=== PATIENT | male | born 1970 | race Caucasian/White ===

== ENCOUNTER 2023-09-19 08:54 | Inpatient (IN) | payer OTHER ==
[~2023-09-19] VITALS: Ht 182.9 cm; Wt 126.6 kg
[2023-09-19] MEDS: (RENVELA) SEVELAMER **CARBONate** 800 MG TAB PO SCH (12:30)
[2023-09-19 12:50] VITALS: BP 147/88; TEMP 97.6; O2SAT 94
[2023-09-19] MEDS ORDERED: IPRATROPIUM 0.02% SOLN 0.5MG 2.5ML NEB INH PRN (13:35)
[2023-09-19] MEDS ORDERED: ASPI81CH33 PO (15:10)
[2023-09-19] MEDS ORDERED: AMIO200T49 PO (15:10)
[2023-09-19] MEDS ORDERED: ATOR1TAB19 PO ×2 (15:10)
[2023-09-19] MEDS ORDERED: APAP325T4 PO (15:10)
[2023-09-19] MEDS ORDERED: SERT-141 PO (15:29)
[2023-09-19] MEDS ORDERED: FERR325T3 PO (15:29)
[2023-09-19] MEDS ORDERED: METO25TA4 PO (15:29)
[2023-09-19] MEDS ORDERED: BUME2TAB3 PO (15:29)
[2023-09-19] MEDS ORDERED: POLY17PO18 PO (15:29)
[2023-09-19] MEDS ORDERED: IPRA0.00 INH (15:29)
[2023-09-19] MEDS ORDERED: FOLI1TAB11 PO (15:29)
[2023-09-19] MEDS ORDERED: METH-1164 PO (15:29)
[2023-09-19] MEDS ORDERED: LEVO200T4 PO (15:29)
[2023-09-19] MEDS ORDERED: MELA1TAB9 PO (15:29)
[2023-09-19] MEDS ORDERED: SEVE800T3 PO (15:29)
[2023-09-19] MEDS ORDERED: PANT40TA29 PO (15:29)
[2023-09-19] MEDS ORDERED: GABA-1171 PO (15:29)
[2023-09-19] MEDS ORDERED: ASCO500T PO (15:35)
[2023-09-19] MEDS ORDERED: VITA1CAP25 PO (15:35)
[2023-09-19] MEDS ORDERED: HOME MED LIST COMPLETE! XX SCH (15:40)
[2023-09-19] MEDS: GABAPENTIN 100 MG CAP PO SCH (16:43)
[2023-09-19] MEDS: METOPROLOL TART 12.5 MG PER 1/2 TAB PO SCH (16:44)
[2023-09-19] MEDS ORDERED: SODIUM CHLORIDE 0.9% INJ 10 ML SYR IV PRN (17:40)
[2023-09-19 20:00] VITALS: BP 132/82; TEMP 97.4; O2SAT 98
[2023-09-19] MEDS: ATORVASTATIN 10 MG TAB PO SCH (20:14)
[2023-09-19] MEDS: SODIUM CHLORIDE 0.9% INJ 10 ML SYR IV SCH (20:15)
[2023-09-20] MEDS: LEVOTHYROXINE 100MCG TABLET (0.1MG) PO SCH (05:36)
[2023-09-20 05:57] VITALS: BP 158/85; TEMP 97.4; O2SAT 94
[2023-09-20 06:07] LABS: BASO # 0.1 10^3/uL (0.0-0.2); BASO % 0.6 % (0.0-1.0); EOS # 1.1 10^3/uL (0.0-0.5); EOS % 13.8 % (0.0-3.0); HEMATOCRIT 29.4 % (42.0-52.0); HEMOGLOBIN 8.8 g/dl (13.5-17.5); LYMPH # 2.2 10^3/uL (1.5-5.0); LYMPH % 26.3 % (24.0-44.0); MEAN CORPUSCULAR HEMOGLOBIN 28.9 pg (27.0-33.0); MEAN CORPUSCULAR HGB CONC 29.9 g/dl (32.0-36.5); MEAN CORPUSCULAR VOLUME 96.7 fl (80.0-96.0); MONO # 0.7 10^3/uL (0.0-0.8); MONO % 8.5 % (2.0-8.0); NEUTROPHILS # 4.1 10^3/uL (1.5-8.5); NEUTROPHILS % 49.6 % (36.0-66.0); PLATELET COUNT, AUTOMATED 172 10^3/uL (150-450); RED BLOOD COUNT 3.04 10^6/uL (4.30-6.10); WHITE BLOOD COUNT 8.3 10^3/uL (4.0-10.0)
[2023-09-20 06:16] LABS: CALCIUM LEVEL 8.2 MG/DL (8.5-10.1); CREATININE FOR GFR 3.36 MG/DL (0.70-1.30); GLOMERULAR FILTRATION RATE 20.8 (>56); POTASSIUM SERUM 3.6 MMOL/L (3.5-5.1)
[2023-09-20] MEDS: FERROUS SULFATE 325MG TAB PO SCH (07:23)
[2023-09-20] MEDS: PANTOPRAZOLE 40MG TAB (PROTONIX) PO SCH (07:23)
[2023-09-20] MEDS: ASPIRIN 81MG ENTERIC TABLET PO SCH (07:23)
[2023-09-20] MEDS: SERTRALINE HCL 50 MG TAB PO SCH (07:23)
[2023-09-20] MEDS: ASCORBIC ACID 500 MG TAB PO SCH (07:23)
[2023-09-20] MEDS: AMIODARONE 200 MG TAB (PACERONE) PO SCH (07:23)
[2023-09-20] MEDS: BUMETANIDE 1 MG TAB PO SCH (07:24)
[2023-09-20] MEDS: MIRALAX *UNIT DOSE* 17GM PACKET PO SCH (07:24)
[2023-09-20] MEDS: FOLIC ACID 1MG TAB PO SCH (07:24)
[2023-09-20] MEDS: DAPTOmycin 1,000 MG in NS 50 ML IV SCH (11:17)
[2023-09-20 13:18] LABS: PERCENT SATURATION 15.1 % (19.7-50.0)
[2023-09-20 14:00] VITALS: BP 144/83; TEMP 97.7; O2SAT 94
[2023-09-20] MEDS: SPIRONOLACTONE 50 MG TAB PO ONE (14:02)
[2023-09-20 19:53] VITALS: BP 145/86; TEMP 98.1; O2SAT 96
[2023-09-20] MEDS: guaiFENesin ER TABLET 600 MG TAB PO SCH (20:46)
[2023-09-21 01:15] VITALS: O2SAT 94
[2023-09-21 05:30] VITALS: BP 157/90; TEMP 97.3; O2SAT 95
[2023-09-21 06:47] LABS: ALBUMIN 2.2 G/DL (3.2-5.2); CALCIUM LEVEL 8.6 MG/DL (8.5-10.1); CREATININE FOR GFR 3.11 MG/DL (0.70-1.30); GLOMERULAR FILTRATION RATE 22.7 (>56); PHOSPHORUS LEVEL 3.9 MG/DL (2.5-4.9); POTASSIUM SERUM 3.4 MMOL/L (3.5-5.1); PTH INTACT 34.2 PG/ML (18.5-88.0)
[2023-09-21] MEDS: SPIRONOLACTONE 50 MG TAB PO SCH (08:10)
[2023-09-21] MEDS: POTASSIUM CHLORIDE 10MEQ SR TABLET PO ONE (11:55)
[2023-09-21 14:00] VITALS: BP 138/78; TEMP 98; O2SAT 95
[2023-09-21] MEDS: FERROUS GLUCONATE 324 MG TAB PO SCH (17:08)
[2023-09-21] MEDS: METOPROLOL TART 25 MG TABLET PO SCH (17:08)
[2023-09-21 19:26] VITALS: BP 134/78; TEMP 98.6; O2SAT 96
[2023-09-22 05:15] VITALS: BP 149/79; TEMP 97.7; O2SAT 95
[2023-09-22 07:11] LABS: HEMATOCRIT 30.4 % (42.0-52.0); HEMOGLOBIN 9.1 g/dl (13.5-17.5); MEAN CORPUSCULAR HGB CONC 29.9 g/dl (32.0-36.5); MEAN CORPUSCULAR VOLUME 96.8 fl (80.0-96.0); PLATELET COUNT, AUTOMATED 185 10^3/uL (150-450); RED BLOOD COUNT 3.14 10^6/uL (4.30-6.10); WHITE BLOOD COUNT 10.1 10^3/uL (4.0-10.0)
[2023-09-22 07:50] LABS: ALBUMIN 2.3 G/DL (3.2-5.2); CALCIUM LEVEL 8.5 MG/DL (8.5-10.1); CREATININE FOR GFR 3.01 MG/DL (0.70-1.30); GLOMERULAR FILTRATION RATE 23.6 (>56); PHOSPHORUS LEVEL 4.3 MG/DL (2.5-4.9); POTASSIUM SERUM 3.5 MMOL/L (3.5-5.1)
[2023-09-22] MEDS: POTASSIUM CHLORIDE 10MEQ SR TABLET PO ONE (13:41)
[2023-09-22 14:00] VITALS: BP 144/85; TEMP 98.2; O2SAT 90
[2023-09-22 20:00] VITALS: BP 166/93; TEMP 98.2; O2SAT 99
[2023-09-23 06:00] VITALS: BP 156/88; TEMP 97.9; O2SAT 97
[2023-09-23 07:25] LABS: ALBUMIN 2.3 G/DL (3.2-5.2); CALCIUM LEVEL 8.3 MG/DL (8.5-10.1); CREATININE FOR GFR 2.93 MG/DL (0.70-1.30); GLOMERULAR FILTRATION RATE 24.4 (>56); PHOSPHORUS LEVEL 4.7 MG/DL (2.5-4.9); POTASSIUM SERUM 3.7 MMOL/L (3.5-5.1)
[2023-09-23 14:00] VITALS: BP 124/73; TEMP 98; O2SAT 90
[2023-09-23 20:00] VITALS: BP 158/81; TEMP 97.9; O2SAT 92
[2023-09-24 06:00] VITALS: BP 138/81; TEMP 97.9; O2SAT 97
[2023-09-24 07:07] LABS: ALBUMIN 2.2 G/DL (3.2-5.2); CALCIUM LEVEL 8.2 MG/DL (8.5-10.1); CREATININE FOR GFR 2.85 MG/DL (0.70-1.30); GLOMERULAR FILTRATION RATE 25.1 (>56); PHOSPHORUS LEVEL 4.7 MG/DL (2.5-4.9); POTASSIUM SERUM 3.6 MMOL/L (3.5-5.1)
[2023-09-24 07:08] LABS: PERCENT SATURATION 10.9 % (19.7-50.0)
[2023-09-24 07:09] LABS: FERRITIN 238.5 NG/ML (10.5-307.3)
[2023-09-24 11:05] VITALS: BP 139/83; TEMP 98.1; O2SAT 92
[2023-09-24] MEDS: FERRIC CARBOXYMALTOSE INJ 750 MG, VIAL MATE ADAPTER 1 EACH in NS 250 ML IV ONE (11:05)
[2023-09-24 14:00] VITALS: BP 130/72; TEMP 98.8; O2SAT 91
[2023-09-24 20:00] VITALS: BP 158/85; TEMP 97.8; O2SAT 91
[2023-09-24 22:45] LABS: C REACTIVE PROTEIN QUANTITATIV 4.3 MG/DL (<1.0)
[2023-09-25 06:00] VITALS: BP 155/87; TEMP 97.9; O2SAT 96
[2023-09-25 07:01] LABS: ALBUMIN 2.3 G/DL (3.2-5.2); CALCIUM LEVEL 8.4 MG/DL (8.5-10.1); CREATININE FOR GFR 2.77 MG/DL (0.70-1.30); PHOSPHORUS LEVEL 4.6 MG/DL (2.5-4.9); POTASSIUM SERUM 3.2 MMOL/L (3.5-5.1)
[2023-09-25] MEDS ORDERED: MIRTAZAPINE 15 MG TAB PO PRN (07:50)
[2023-09-25] MEDS: POTASSIUM CHLORIDE 10MEQ SR TABLET PO SCH (10:50)
[2023-09-25 12:15] LABS: HEMATOCRIT 31.1 % (42.0-52.0); HEMOGLOBIN 9.5 g/dl (13.5-17.5); MEAN CORPUSCULAR HEMOGLOBIN 29.4 pg (27.0-33.0); MEAN CORPUSCULAR HGB CONC 30.5 g/dl (32.0-36.5); MEAN CORPUSCULAR VOLUME 96.3 fl (80.0-96.0); PLATELET COUNT, AUTOMATED 191 10^3/uL (150-450); RED BLOOD COUNT 3.23 10^6/uL (4.30-6.10); WHITE BLOOD COUNT 12.4 10^3/uL (4.0-10.0)
[2023-09-25 14:00] VITALS: BP 144/81; TEMP 95.5; O2SAT 93
[2023-09-25 20:00] VITALS: BP 157/90; TEMP 98.9; O2SAT 93
[2023-09-26 06:00] VITALS: BP 139/85; TEMP 98.4; O2SAT 95
[2023-09-26 07:12] LABS: CALCIUM LEVEL 8.2 MG/DL (8.5-10.1); CREATININE FOR GFR 2.68 MG/DL (0.70-1.30); POTASSIUM SERUM 3.6 MMOL/L (3.5-5.1)
[2023-09-26 14:00] VITALS: BP 133/76; TEMP 98.6; O2SAT 94
[2023-09-26 20:00] VITALS: BP 143/86; TEMP 97.7; O2SAT 93
[2023-09-26] MEDS: traZODone 50 MG TAB PO PRN (20:31)
[2023-09-27 06:00] VITALS: BP 158/70; TEMP 97.3; O2SAT 98
[2023-09-27 14:00] VITALS: BP 134/65; TEMP 96.4; O2SAT 93
[2023-09-27 20:00] VITALS: BP 145/70; TEMP 97.6; O2SAT 92
[2023-09-27] MEDS: ACETAMINOPHEN 500 MG TAB PO PRN (22:32)
[2023-09-28 06:00] VITALS: BP 160/87; TEMP 97.3; O2SAT 98
[2023-09-28 06:07] LABS: HEMATOCRIT 30.3 % (42.0-52.0); MEAN CORPUSCULAR HEMOGLOBIN 28.9 pg (27.0-33.0); MEAN CORPUSCULAR HGB CONC 29.7 g/dl (32.0-36.5); MEAN CORPUSCULAR VOLUME 97.4 fl (80.0-96.0); PLATELET COUNT, AUTOMATED 177 10^3/uL (150-450); RED BLOOD COUNT 3.11 10^6/uL (4.30-6.10); WHITE BLOOD COUNT 8.1 10^3/uL (4.0-10.0)
[2023-09-28 06:26] LABS: ERYTHROCYTE SEDIMENTATION RATE 33 mm/hr (0-20)
[2023-09-28 06:34] LABS: C REACTIVE PROTEIN QUANTITATIV 3.3 MG/DL (<1.0)
[2023-09-28 06:36] LABS: ALBUMIN 2.3 G/DL (3.2-5.2); CALCIUM LEVEL 7.9 MG/DL (8.5-10.1); CREATININE FOR GFR 2.6 MG/DL (0.70-1.30); PHOSPHORUS LEVEL 3.8 MG/DL (2.5-4.9); POTASSIUM SERUM 3.7 MMOL/L (3.5-5.1)
[2023-09-28 14:00] VITALS: BP_SYST 128; BP_SYST 162; BP_DIAS 71; BP_DIAS 90; TEMP 97.4; TEMP 98; O2SAT 94; O2SAT 96
[2023-09-28 20:00] VITALS: BP 157/83; TEMP 98.1; O2SAT 96
[2023-09-28] MEDS: MUPIROCIN 2% OINT 22 GM TUBE TOP SCH (22:05)
[2023-09-29 05:36] VITALS: BP 136/87; TEMP 97; O2SAT 96
[2023-09-29 14:00] VITALS: BP 116/72; TEMP 99.1; O2SAT 93
[2023-09-29 20:00] VITALS: BP 145/89; TEMP 99.1; O2SAT 92
[2023-09-29 21:37] VITALS: BP 140/79; TEMP 98.5; O2SAT 93
[2023-09-29] MEDS: MAALOX 30 ML SUSP *UDC PO ONE (22:40)
[2023-09-30 00:42] LABS: BASO # 0.1 10^3/uL (0.0-0.2); BASO % 0.7 % (0.0-1.0); EOS # 1.2 10^3/uL (0.0-0.5); EOS % 11.8 % (0.0-3.0); HEMATOCRIT 31.8 % (42.0-52.0); HEMOGLOBIN 9.5 g/dl (13.5-17.5); LYMPH # 2.8 10^3/uL (1.5-5.0); LYMPH % 27.8 % (24.0-44.0); MEAN CORPUSCULAR HEMOGLOBIN 28.7 pg (27.0-33.0); MEAN CORPUSCULAR HGB CONC 29.9 g/dl (32.0-36.5); MEAN CORPUSCULAR VOLUME 96.1 fl (80.0-96.0); MONO # 0.7 10^3/uL (0.0-0.8); MONO % 7.2 % (2.0-8.0); NEUTROPHILS # 5.2 10^3/uL (1.5-8.5); NEUTROPHILS % 51.8 % (36.0-66.0); PLATELET COUNT, AUTOMATED 192 10^3/uL (150-450); RED BLOOD COUNT 3.31 10^6/uL (4.30-6.10); WHITE BLOOD COUNT 10.1 10^3/uL (4.0-10.0)
[2023-09-30 01:07] LABS: CK-MB VALUE MASS < 1.0 NG/ML (<3.6)
[2023-09-30 01:08] LABS: CPK CREATINE PHOSPHOKINASE 43 U/L (46-171); MB/CK RELATIVE INDEX 2.32 (< OR =4)
[2023-09-30 01:09] LABS: ALBUMIN 2.6 G/DL (3.2-5.2); ALKALINE PHOSPHATASE 95 U/L (46-116); ALT/SGPT 18 U/L (7.0-40); AST/SGOT 16 U/L (<34); BILIRUBIN,TOTAL 0.3 MG/DL (0.3-1.2); BLOOD UREA NITROGEN 23 MG/DL (9-23); CALCIUM LEVEL 7.9 MG/DL (8.5-10.1); CARBON DIOXIDE LEVEL 32 MMOL/L (20-31); CHLORIDE LEVEL 104 MMOL/L (98-107); CREATININE FOR GFR 2.76 MG/DL (0.70-1.30); GLOMERULAR FILTRATION RATE 26.1 (>56); GLUCOSE, FASTING 91 MG/DL (60-100); MAGNESIUM LEVEL 1.4 MG/DL (1.8-2.4); POTASSIUM SERUM 3.7 MMOL/L (3.5-5.1); SODIUM LEVEL 142 MMOL/L (136-145); TOTAL PROTEIN 6.4 G/DL (5.7-8.2)
[2023-09-30] MEDS: LIDOCAINE 5% (LIDODERM) PATCH TD PRN (01:14)
[2023-09-30] MEDS: MAGNESIUM OXIDE 400MG TAB (MAG-OX) PO ONE (01:55)
[2023-09-30 05:22] VITALS: BP 162/90; TEMP 98; O2SAT 94
[2023-09-30 06:24] VITALS: BP 152/92; TEMP 98.4; O2SAT 93
[2023-09-30] MEDS: ALPRAZolam 0.25 MG TAB PO PRN (06:31)
[2023-09-30] MEDS ORDERED: NITROGLYCERIN 0.4MG SUBL TABLET As Ordered ONE (07:07)
[2023-09-30] MEDS: NITROGLYCERIN 0.4MG SUBL TABLET SL PRN (07:10)
[2023-09-30 07:47] VITALS: BP 130/80; TEMP 97.1; O2SAT 90
[2023-09-30] MEDS: MAGNESIUM OXIDE 400MG TAB (MAG-OX) PO SCH ×2 (08:11→20:54)
[2023-09-30] MEDS: methocarbamoL 750 MG TAB PO PRN (10:13)
[2023-09-30 10:14] VITALS: BP 144/91; O2SAT 93
[2023-09-30 14:00] VITALS: BP 151/90; TEMP 97.9; O2SAT 93
[2023-09-30] MEDS ORDERED: MAG SULF 1GM/100ML (MAG RUN) 1 GM in IV 1 EA IV ONE (14:00)
[2023-09-30 19:25] VITALS: BP 160/93; TEMP 97.7; O2SAT 95
[2023-10-01 06:28] VITALS: BP 145/87; TEMP 98.3; O2SAT 91
[2023-10-01 07:31] LABS: BASO # 0.1 10^3/uL (0.0-0.2); BASO % 0.5 % (0.0-1.0); EOS # 0.7 10^3/uL (0.0-0.5); EOS % 5.1 % (0.0-3.0); HEMATOCRIT 33.5 % (42.0-52.0); HEMOGLOBIN 9.9 g/dl (13.5-17.5); LYMPH # 2.2 10^3/uL (1.5-5.0); LYMPH % 15.6 % (24.0-44.0); MEAN CORPUSCULAR HEMOGLOBIN 28.6 pg (27.0-33.0); MEAN CORPUSCULAR HGB CONC 29.6 g/dl (32.0-36.5); MEAN CORPUSCULAR VOLUME 96.8 fl (80.0-96.0); MONO % 7.1 % (2.0-8.0); NEUTROPHILS # 9.9 10^3/uL (1.5-8.5); NEUTROPHILS % 71.3 % (36.0-66.0); PLATELET COUNT, AUTOMATED 177 10^3/uL (150-450); RED BLOOD COUNT 3.46 10^6/uL (4.30-6.10); WHITE BLOOD COUNT 13.9 10^3/uL (4.0-10.0)
[2023-10-01 09:45] VITALS: BP 148/91; TEMP 98.3; O2SAT 92
[2023-10-01 14:00] VITALS: BP 144/81; TEMP 98.3; O2SAT 96
[2023-10-01 19:28] VITALS: BP 136/70; TEMP 98.7; O2SAT 94
[2023-10-01 20:49] VITALS: BP 136/70
[2023-10-02 05:52] VITALS: BP 129/72; TEMP 98.2; O2SAT 90
[2023-10-02 10:10] LABS: BASO # 0.1 10^3/uL (0.0-0.2); BASO % 0.4 % (0.0-1.0); EOS # 0.6 10^3/uL (0.0-0.5); EOS % 4.1 % (0.0-3.0); HEMATOCRIT 33.7 % (42.0-52.0); HEMOGLOBIN 9.9 g/dl (13.5-17.5); LYMPH # 2.1 10^3/uL (1.5-5.0); LYMPH % 14.7 % (24.0-44.0); MEAN CORPUSCULAR HGB CONC 29.4 g/dl (32.0-36.5); MEAN CORPUSCULAR VOLUME 98.8 fl (80.0-96.0); MONO % 6.9 % (2.0-8.0); NEUTROPHILS # 10.5 10^3/uL (1.5-8.5); NEUTROPHILS % 73.4 % (36.0-66.0); PLATELET COUNT, AUTOMATED 179 10^3/uL (150-450); RED BLOOD COUNT 3.41 10^6/uL (4.30-6.10); WHITE BLOOD COUNT 14.2 10^3/uL (4.0-10.0)
[2023-10-02 10:37] LABS: C REACTIVE PROTEIN QUANTITATIV 19.9 MG/DL (<1.0)
[2023-10-02 10:39] LABS: ALBUMIN 2.6 G/DL (3.2-5.2); CALCIUM LEVEL 7.9 MG/DL (8.5-10.1); CREATININE FOR GFR 2.62 MG/DL (0.70-1.30); GLOMERULAR FILTRATION RATE 27.7 (>56); PHOSPHORUS LEVEL 3.1 MG/DL (2.5-4.9); POTASSIUM SERUM 3.5 MMOL/L (3.5-5.1)
[2023-10-02] MEDS ORDERED: ALDA50TA2 PO (12:10)
[2023-10-02] MEDS ORDERED: METO1TAB87 PO (12:10)
[2023-10-02] MEDS ORDERED: TRAZ-252 PO (12:10)
[2023-10-02] MEDS ORDERED: MAGN400T2 PO (12:10)
[2023-10-02] MEDS ORDERED: NITR4TASL SL (12:10)
[2023-10-02] MEDS ORDERED: MERO1INJ8 IV (12:10)
[2023-10-02] MEDS ORDERED: [UNRECOGNIZED DRUG - REMARK] IV (12:10)
[2023-10-02] MEDS ORDERED: ASCO50TA PO (12:10)
[2023-10-02] MEDS: MEROPENEM INJ 1 GM in IV 1 EA IV SCH (13:08)
[2023-10-02] MEDS: POTASSIUM CHLORIDE 10MEQ SR TABLET PO ONE (13:08)
[2023-10-02] MEDS: VANCOMYCIN HCL 1,000 MG, VIAL MATE ADAPTER 1 EACH in D5W 250 ML IV ONE (13:48)
== END 2023-10-02 14:30 | disposition short-term general hospital (02) | DRG 57 ==
LOC: M PM&R 12:50
PROVIDERS: ADMIT Physical Medicine & Rehabilitation; ATTEND Physical Medicine & Rehabilitation
DX: I69.354 Hemiplegia and hemiparesis following cerebral infarction affecting left non-dominant side (principal); C16.0 Malignant neoplasm of cardia; T82.868A Thrombosis due to vascular prosthetic devices, implants and grafts, initial encounter; D62 Acute posthemorrhagic anemia; N17.9 Acute kidney failure, unspecified; J98.11 Atelectasis; E87.3 Alkalosis; G72.81 Critical illness myopathy; T81.41XA Infection following a procedure, superficial incisional surgical site, initial encounter; I12.9 Hypertensive chronic kidney disease with stage 1 through stage 4 chronic kidney disease, or unspecified chronic kidney disease; N18.30 Chronic kidney disease, stage 3 unspecified; G47.33 Obstructive sleep apnea (adult) (pediatric); E66.01 Morbid (severe) obesity due to excess calories; E03.9 Hypothyroidism, unspecified; I48.0 Paroxysmal atrial fibrillation; Z74.09 Other reduced mobility; Z74.1 Need for assistance with personal care; Y83.1 Surgical operation with implant of artificial internal device as the cause of abnormal reaction of the patient, or of later complication, without mention of misadventure at the time of the procedure; Z93.1 Gastrostomy status; F39 Unspecified mood [affective] disorder; K21.9 Gastro-esophageal reflux disease without esophagitis; K59.09 Other constipation; E87.6 Hypokalemia; R60.0 Localized edema; D50.9 Iron deficiency anemia, unspecified; G47.00 Insomnia, unspecified; M62.838 Other muscle spasm; L89.152 Pressure ulcer of sacral region, stage 2; L89.316 Pressure-induced deep tissue damage of right buttock; I69.315 Cognitive social or emotional deficit following cerebral infarction; I87.2 Venous insufficiency (chronic) (peripheral); D72.829 Elevated white blood cell count, unspecified; Y83.8 Other surgical procedures as the cause of abnormal reaction of the patient, or of later complication, without mention of misadventure at the time of the procedure; Z79.82 Long term (current) use of aspirin; Z86.14 Personal history of Methicillin resistant Staphylococcus aureus infection; Z79.890 Hormone replacement therapy; Z88.8 Allergy status to other drugs, medicaments and biological substances; Z79.899 Other long term (current) drug therapy; Z91.030 Bee allergy status; Z68.39 Body mass index [BMI] 39.0-39.9, adult